=== PATIENT | male | born 1940 | race Asian ===

== ENCOUNTER → 2019-07-03 | Outpatient (CLI) | payer MEDICARE, OTHER ==
--- NOTE | 2019-07-03 13:06 | RAD ---
EXAM: Chest, 2 views. HISTORY: Shortness of air. COMPARISON: None. FINDINGS: 2 views the chest are obtained. There is no infiltrate, pleural effusion or pneumothorax. The heart is normal in size. IMPRESSION: No acute pulmonary finding. Electronically signed by: Makayla Byrd MD (07/03/2019 1:03 PM) [place] [id number]
== END | disposition home or self-care (01) ==
LOC: DXRAD 08:45
PROVIDERS: ATTEND Specialist
DX: J20.9 Acute bronchitis, unspecified (principal)
CPT/HCPCS: 71046

== ENCOUNTER → 2020-07-28 | Outpatient (CLI) | payer MEDICARE, OTHER ==
[~2020-07-28] MED LIST: FINA5TAB4 PO; METF500T16 PO; OMEP40CA45 PO; TAMS0.4C97 PO
== END ==
LOC: LAB 13:20
PROVIDERS: ATTEND Nurse Anesthetist, Certified Registered
DX: Z01.812 Encounter for preprocedural laboratory examination (principal); Z20.828 Contact with and (suspected) exposure to other viral communicable diseases
CPT/HCPCS: U0003

== ENCOUNTER → 2020-07-31 | Day surgery (SDC) | payer MEDICARE, OTHER ==
[~2020-07-31] MED LIST changes: +IPRATRPIUM/ALBUTEROL 0.5/2.5MG 3 ML NEBU. NEB PRN; +IV RINGERS SOLUTION,LACTATED 1,000 ML IV SCH; +LIDOCAINE 2% PF 5 ML VIAL. ONE; +MIDAZOLAM HCL PF 2 MG/2 ML VIAL. IV ONE; +ONDANSETRON PF 4 MG/2 ML VIAL. IV PRN; +PROPOFOL 10,000 MCG/ML (20ML) VIAL IV ONE
[2020-07-31 12:40] VITALS: BP 139/76
--- NOTE | 2020-08-06 09:41 | PATHOLOGY ---
[facility] Accession Number: [id number] . 01 Material submitted: . gastrointestinal site - ANTRUM GASTRITIS BIOPSY X2 . 01 Clinical history: . GASTRITIS EGD . 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 (JPM:[facility] 08/05/2020) [facility] 08/05/2020 1011 Local . 02 Comment: Sections of the gastric antral biopsy show congestion and mild chronic inflammation. There is a small focus of intestinal metaplasia. A properly controlled immunoperoxidase stain for Helicobacter is negative for Helicobacter organisms. There is no evidence of malignancy. (JPM:[facility] 08/05/2020) . Special stain performed: Immunoperoxidase for Helicobacter on A1. . 02 Electronically signed: . Gatito Nieto MD, Pathologist NPI- [id number] . 01 Gross description: . The specimen is received in formalin, labeled "[place], antrum gastritis x2". Received is a segment of pale [place] soft tissue measuring 0.4 cm in maximum dimensions. The specimen is submitted entirely in cassette A1. Upon careful inspection and filtration, no additional tissue is found remaining within the container. ([facility]; 08/04/2020) [facility] 08/04/2020 1121 Local . 02 Pathologist provided ICD-10: K29.50 . 02 CPT . 104515, [id number] Specimen Comment: A courtesy copy of this report has been sent to [phone], [phone]- Specimen Comment: [id number] Specimen Comment: Report sent to / DR LUDWIG Specimen Comment: A duplicate report has been generated due to demographic updates. Performed at: [address], [place], [place] [id number] MD Yayo Villalba MD Phone: [phone] Performed at: [address] [id number] MD Gatito Nieto MD Phone: [phone]
== END | disposition home or self-care (01) ==
LOC: SURG 09:58
PROVIDERS: ATTEND Internal Medicine Gastroenterology
DX: R12 Heartburn (principal); K29.50 Unspecified chronic gastritis without bleeding; M51.36 Other intervertebral disc degeneration, lumbar region; K21.9 Gastro-esophageal reflux disease without esophagitis; Z87.442 Personal history of urinary calculi; Z79.899 Other long term (current) drug therapy; Z79.84 Long term (current) use of oral hypoglycemic drugs
CPT/HCPCS: 43239; 82947; 88305; 88342; J2001; J2704; J7120